=== PATIENT | male | born 1975 | race American Indian/Alaskan Native ===

== ENCOUNTER 2018-08-17 18:18 | Emergency (ER) | payer SELFPAY ==
[2018-08-17 18:40] VITALS: BP 159/99
--- NOTE | 2018-08-17 18:40 | Event Note ---
ED Screening Note ED Screening Note: pt presents with left sided CP that began couple days ago states it felt like a sharp pain states he has tingling in the left arm no SOB no N/V no diaphoresis PMHx HTN, heart murmur, PUD non smoker +ETOH denies drug use This initial assessment/diagnostic orders/clinical plan/treatment(s) is/are subject to change based on patients health status, clinical progression and re- assessment by fellow clinical providers in the ED. Further treatment and workup at subsequent clinical providers discretion. Patient/guardian urged not to elope from the ED as their condition may be serious if not clinically assessed and managed. Initial orders include: CP protocol
[2018-08-17 19:19] LABS: Basophils % (Auto) 0.7 % (0.0-1.8); Eosinophils # (Auto) 0.1 K/mm3 (0.0-0.4); Eosinophils % (Auto) 1.4 % (0.0-4.3); Hematocrit 41.1 % (35.5-45.6); Hemoglobin 13.5 gm/dl (11.8-15.2); Lymphocytes # (Auto) 1.6 K/mm3 (1.2-5.4); Mean Corpuscular HGB Conc 33 % (32-34); Mean Corpuscular Volume 84 fl (84-94); Monocytes # (Auto) 0.5 K/mm3 (0.0-0.8); Monocytes % (Auto) 11.1 % (0.0-7.3); Platelet Count 225 K/mm3 (140-440); Red Blood Count 4.89 M/mm3 (3.65-5.03); Red Cell Distribution Width 13.9 % (13.2-15.2)
[2018-08-17 19:31] LABS: INR 0.94 (0.87-1.13)
[2018-08-17 19:32] LABS: Partial Thromboplastin Time 27.1 Sec. (24.2-36.6)
--- NOTE | 2018-08-17 19:36 | XRay Report ---
CHEST 2 VIEWS INDICATION / CLINICAL INFORMATION: Chest Pain. Left chest pain COMPARISON: None available. FINDINGS: SUPPORT DEVICES: None. HEART / MEDIASTINUM: No significant abnormality. LUNGS / PLEURA: No significant pulmonary or pleural abnormality. No pneumothorax. ADDITIONAL FINDINGS: No significant additional findings. IMPRESSION: 1. No acute findings. Signer Name: Shaun Wilson MD Signed: 08/17/2018 7:32 PM Workstation Name: [id number]
[2018-08-17 19:42] LABS: Alanine Aminotransferase 18 units/L (7-56); Albumin 4.3 g/dL (3.9-5); BUN/Creatinine Ratio 17; Blood Urea Nitrogen 15 mg/dL (9-20); Calcium 9.3 mg/dL (8.4-10.2); Hemolysis Index 3
--- NOTE | 2018-08-17 21:12 | Emergency Department Report ---
ED General Adult HPI - General Chief complaint: Extremity Injury, Upper Stated complaint: CHEST PAIN/HEADACHE/ARM PAIN Time Seen by Provider: 08/17/18 18:38 Source: patient Mode of arrival: Ambulatory Limitations: No Limitations - History of Present Illness Initial comments: 43-year-old -[place] male with past medical history of hypertension. S department complaining of a 2 day history of chest pain associated with left arm numbness and tingling. Left arm numbness and tingling that has been present off and on for the past few weeks, but he reports it being more prevalent at the time of his chest pain. Arm numbness pain and tingling began around the elbow and now is beginning to involve his wrist and now his hands and fingers reports no loss of strength. He reports no trauma. He reports no neck pain. He reports no rashes or change in character. His work does involve his hands but states is not an excessive capacity. Radiation: non-radiation Severity scale (0 -10): 10 Consistency: constant Improves with: none Worsens with: none Associated Symptoms: denies: cough, fever/chills, loss of appetite, malaise, nausea/vomiting, rash, syncope, weakness - Related Data Allergies Allergy/AdvReac Type Severity Reaction Status Date / Time No Known Allergies Allergy Verified 08/17/18 18:40 ED Review of Systems ROS: Stated complaint: CHEST PAIN/HEADACHE/ARM PAIN Other details as noted in HPI Comment: All other systems reviewed and negative ED Past Medical Hx - Past Medical History Previous Medical History?: Yes Hx Hypertension: Yes - Surgical History Past Surgical History?: Yes Additional Surgical History: ulcer surgery - Social History Smoking Status: Never Smoker Substance Use Type: Alcohol ED Physical Exam - General Limitations: No Limitations General appearance: alert, in no apparent distress - Head Head exam: Present: atraumatic, normocephalic - Eye Eye exam: Present: normal appearance, PERRL Pupils: Present: normal accommodation - ENT ENT exam: Present: normal exam, mucous membranes moist, TM's normal bilaterally - Neck Neck exam: Present: normal inspection, full ROM - Respiratory Respiratory exam: Present: normal lung sounds bilaterally. Absent: respiratory distress, wheezes, rales, chest wall tenderness, accessory muscle use, decreased breath sounds - Cardiovascular Cardiovascular Exam: Present: regular rate, normal rhythm. Absent: systolic murmur, diastolic murmur, rubs, gallop - GI/Abdominal GI/Abdominal exam: Present: soft, normal bowel sounds - Rectal Rectal exam: Present: deferred - Extremities Exam Extremities exam: Present: normal inspection, normal capillary refill - Back Exam Back exam: Present: normal inspection - Neurological Exam Neurological exam: Present: alert, oriented X3, CN II-XII intact, normal gait - Psychiatric Psychiatric exam: Present: normal affect, normal mood - Skin Skin exam: Present: warm, dry, intact, normal color. Absent: rash ED Course Vital Signs 08/17/18 18:38 Temperature 98 F Pulse Rate 81 Respiratory 18 Rate Blood Pressure 159/99 [Right] O2 Sat by Pulse 100 Oximetry ED Medical Decision Making - Lab Data Result diagrams: 08/17/18 18:42 08/17/18 18:42 - Radiology Data Radiology results: report reviewed - Medical Decision Making 43-year-old -[place] male presents to emergency department complaining of chest pain and also left arm neuropathy. Cardiac enzymes are negative. Chest x-ray is normal and his EKG showed no STEMI processes do recommend cardiology. Given his history of hypertension and is currently chest pain symptoms. His left arm neuropathy involving force last few weeks and may be secondary to his neck, wrist or elbow do think he may need to get further testing in the realm of nerve conduction studies or neck specific imaging to uncover the underlying issue with his physician is neuropathy that does not appear to be cardiac related Critical care attestation.: If time is entered above; I have spent that time in minutes in the direct care of this critically ill patient, excluding procedure time. ED Disposition Clinical Impression: Upper extremity neuropathy, Chest pain Disposition: TO HOME OR SELFCARE Is pt being admited?: No Does the pt Need Aspirin: No Condition: Stable Instructions: Chest Pain (ED), Peripheral Neuropathy (ED) Referrals: FEROZ MARKHAM MD [Primary Care Provider] - 3-5 Days JULIA MADRIGAL MD [Staff Physician] - 3-5 Days JACKIE AN MD [Referring] - 3-5 Days HERBERT ESCOBAR MD [Staff Physician] - 3-5 Days MONSERRAT GUALLPA [PHYSICIAN [employer] STUDENT] - 3-5 Days JOSE MONTIEL MD [Staff Physician] - 3-5 Days ANNA SEO MD [Staff Physician] - 3-5 Days (Please follow up with cardiology for evaluation of chest pain, hypertension and the likely need for a stress test)
== END 2018-08-17 21:35 | disposition home or self-care (01) ==
LOC: ED 18:18
DX: G62.9 Polyneuropathy, unspecified (principal); R07.89 Other chest pain; I10 Essential (primary) hypertension
CPT/HCPCS: 36415; 71046; 80053; 83880; 84484; 85025; 85610; 85730; 93005; 93010; 99283